=== PATIENT | female | born 1965 | race Caucasian/White ===

== ENCOUNTER 2020-03-18 22:07 | Emergency (ER) | payer OTHER, SELFPAY ==
--- NOTE | 2020-03-18 23:21 | ED.GENADUL_ITS ---
Discharge Plan Disposition Patient Disposition: HOME Condition: Stable Discharge Details Clinical Impression: Dental infection, Elevated blood pressure reading Primary Care Provider: Nicki Hernandez ED Provider: Caity Willoughby Home Meds and New Rx's Prescriptions: New amoxicillin-pot clavulanate [Augmentin] 875-125 mg tablet 1 tab PO BID Qty: 14 RF: 0 oxycodone 5 mg tablet 5 mg PO Q6H PRN (Reason: pain) Qty: 7 RF: 0 Discharge Instructions Instructions: Oxycodone, Rapid Release (By mouth), Dental Abscess (ED) Additional Instructions: Please continue with the amoxicillin currently. Please take your evening dose as prescribed. If you are not improving tomorrow morning please stop the amoxicillin and begin the Augmentin. Please take antibiotics as prescribed, even if symptoms improve please take the entire course. Encourage water intake. You may continue with Tylenol and/or ibuprofen as needed for discomfort. You may use the oxycodone as prescribed. Please not drive will take this medication. Please keep in a safe place take only as prescribed. Please contact your dentist next week to schedule prompt follow-up. If you develop fever/chills, swelling, or other new/worsening symptoms please seek care urgently once again. Referrals: Nicki Hernandez [Primary Care Provider] - Discharge Data Discharge Date/Time-TO BE ENTERED AT DEPARTURE: 03/19/20 00:10 Medical Decision Making Patient is a pleasant 54-year-old female presenting today with chief complaint of left lower dental pain. She reports that she has had worsening dental pain over the past several days. She was seen by her primary care 2 days ago and was placed on amoxicillin for dental infection. She has a known area of fractured tooth with subsequent cavity. She reports this is going to be removed by her dentist. However, they recommended antibiotics prior to procedure. Patient is to take an 3 total doses of amoxicillin. She denies any fevers or chills. Has not noted increased swelling. She presents today as the pain is out of control. On exam, she appears nontoxic. She does appear quite uncomfortable. She does have a fractured tooth in the left lower jaw where her pain is emanating from. Pain elicited with palpation along the buccal side. No lingual sided swelling or pain. No evidence of Ranjeet, posterior oropharynx etiology. I do not see evidence to suggest an acute abscess. Patient is denying any headache. No nuchal rigidity. Patient I discussed treatment options. At this point, I do not believe that she had enough of the amoxicillin to truly see if this is going to work for her at alleviating some of her discomfort associated with her dental infection. She reports that her symptoms may be slightly improved with the dosing of amoxicillin. We discussed transitioning to a different antibiotic. However, I believe that she still too early into her course to expect to see a big change. Instead, we decided to hold off, do a watch and wait approach. If her symptoms are not significantly improved tomorrow, she will be transition to Augmentin. If she starts the Augmentin, she will stop the amoxicillin. Patient's primary presenting complaint is for pain management. She was seen by her dentist recently, I do not feel that repeat block would be appropriate. She denies discussed risk and benefits of narcotics for her severe dental pain. drove her here. She will be prescribed a short course of oxycodone. Advised that she should follow-up with dentist as soon as possible. She will call on Saturday to schedule follow-up appointment. Strict return precautions were discussed. She will not drive will take this medication. Patient is also noted be quite hypertensive. She does have a history of hypertension. Not see any evidence to suggest a hypertensive emergency and advised that she follow-up with her primary care for this. Recommendations for her to follow-up with primary care next week regarding her blood pressure was hand written on her discharge sheet. All of her questions and concerns were addressed and she is in agreement with this plan. HPI General Mode of arrival: ambulatory . Date/Time Provider Initiated Documentation: 03/18/20 23:21 . Limitations to Documentation: no limitations . Information obtained by: patient and RN notes reviewed . History of Present Illness 54 year old F presents to the emergency department with the chief complaint of left lower dental pain, described as severe, with intensity rated at 10. Quality is described as stabbing, and is localized to the mouth. Patient reports no radiation. Patient started experiencing this day(s) and it has been constant. No relieving factors improve symptom(s), Eating worsens symptoms . Patient notes no other symptoms.; denies fever/chills, headaches, nausea/vomiting and rash. Patient did receive the following treatments prior to arrival, other (on amoxicilin) Related Data Home Medications Medication Instructions Recorded Confirmed amoxicillin-pot clavulanate 1 tab PO BID #14 tab 03/18/20 [Augmentin] oxycodone 5 mg PO Q6H PRN #7 tab 03/18/20 Previous Rx's Medication Instructions Recorded amoxicillin-pot clavulanate 1 tab PO BID #14 tab 03/18/20 [Augmentin] oxycodone 5 mg PO Q6H PRN #7 tab 03/18/20 General Stated Complaint: DentalOral DAMIAN: 5 Review of Systems Constitutional Constitutional: Reports as per HPI, Denies chills, Denies fatigue, Denies fever(s), Denies headache(s) and Denies poor appetite Eyes Eyes: Denies change in vision and Denies irritation ENT Ears, Nose, Mouth, and Throat: Reports as per HPI, Reports dental pain, Denies dysphagia, Denies dizziness, Denies dry mouth, Denies ear discharge, Denies otalgia, Reports facial pain, Denies headache(s), Denies hoarseness, Denies lip swelling, Denies nasal congestion, Denies odynophagia and Denies sore throat Cardiovascular Cardiovascular: Reports as per HPI and Denies chest pain Respiratory Respiratory: Reports as per HPI and Denies cough Gastrointestinal Gastrointestinal: Reports as per HPI, Denies dysphagia, Denies nausea, Denies odynophagia and Denies vomiting Integumentary/Breasts Skin/Breast: Reports as per HPI, Denies erythema, Denies rash and Denies skin pain Neurologic Neurologic: Reports as per HPI, Denies dizziness and Denies headache(s) Endocrine Endocrine: Denies fatigue Allergic/Immunologic Allergic/Immunologic: Denies lip swelling [facility] Social History Smoking/Tobacco Use Status: Never Smoking risk assessment performed?: Yes Alcohol Intake: never Drug use: Never Substance use type: does not use Do you feel safe at home: Yes Do you feel safe in your relationship?: Yes Exam Const General: cooperative, healthy appearing, comfortable, no acute distress, well developed and well groomed Nutritional Appearance: average body habitus and well nourished Orientation: alert and awake HENMT Head: normal to inspection, normocephalic and atraumatic Ears: hearing grossly normal bilaterally, external ears normal and TM's normal bilaterally General nose exam: external nose normal and nares normal Face and sinus: normal facial exam, sinuses nontender and face symmetric Mouth: oral mucosae normal, lip normal, tongue normal, no muffled voice, no trismus and No restricted motion Teeth and gingiva: caries and fair dentition (broken left lower dental pain, buccal sided pain with palpation) Throat: posterior oropharynx normal, tonsils normal and uvula midline Eyes General: appearance normal, both eyes and all related structures Neck Neck: normal visual inspection, full ROM, no lymphadenopathy, supple and no anterior neck swelling Resp Effort & Inspection: normal respiratory effort, able to speak in complete sentences and no respiratory distress Auscultation: clear to auscultation bilaterally, no rales, no rhonchi and no wheezes Cardio Rate: regular rate Rhythm: regular rhythm Heart Sounds: S1 normal and S2 normal Skin General skin exam: no rashes or lesions noted Trauma: no lacerations or abrasions Neuro General: patient alert and patient awake Cognition: normal cognition Speech: speech normal Gait: normal gait Psych Appearance: grossly normal and well kempt Mental Status: mental status grossly normal Speech and Movement: speech and movement normal
[2020-03-18 23:25] VITALS: BP 187/109; PULSE 94; RESP 16; TEMP 36; O2SAT 96
[2020-03-18 23:44] VITALS: BP 182/109
== END 2020-03-19 00:10 | disposition home or self-care (01) ==
PROVIDERS: Emergency Provider Physician Assistant; PCP Nurse Practitioner Family
DX: R68.89 Other general symptoms and signs (principal); K04.7 Periapical abscess without sinus; R03.0 Elevated blood-pressure reading, without diagnosis of hypertension
CPT/HCPCS: 99283